=== PATIENT | female | born 1955 | race Caucasian/White ===

== ENCOUNTER 2017-03-30 09:38 | Inpatient (IN) | payer SELFPAY ==
--- NOTE | ~2017-03-30 | DS ---
Unit #: [id number] #: [id number] Patient: BRANDT CHAMPAGNE [id number] [facility] [address] [facility]. [place], [place] [address] [id number] I MR#: [id number] NAME: BRANDT CHAMPAGNE ROOM: 340 Age: 61 Sex: F Admission Date: 03/30/2017 : 1955 Discharge Date: 04/03/2017 Attending Physician: Seble Wray M.D. DISCHARGE SUMMARY DIAGNOSIS ON ADMISSION Atrial fibrillation. DIAGNOSES ON DISCHARGE 1. Atrial fibrillation, rate controlled. 2. Hypertension. 3. Hypothyroidism. 4. Noncompliance with medication secondary to inability to afford. 5. Chronic congestive heart failure with ejection fraction of 40% to 45%. 6. Morbid obesity. CONSULTATIONS Dr. Null in cardiac consultation. LABS AND PROCEDURES 1. Patient had a 2D echocardiogram done which was a limited study but patient's ejection fraction was around 40% to 45%. She had mild to moderate mitral regurgitation present. 2. Patient's creatinine is 0.6 today, sodium 139, and potassium is 3.7. Patient's TSH was 44.43 and free T4 was 0.37. Triglycerides were 203. WBC was 9.6, hemoglobin 12.9, and platelet count was 253,000. HOSPITAL COURSE A 61-year-old patient was admitted to [facility] with atrial fibrillation with rapid ventricular rate. Details are as per admission History and Physical. Atrial fibrillation with rapid ventricular rate. Patient was seen by Dr. Null in consultation and was treated with medicine. Patient's rate is much better controlled. Initially, Dr. Null thought to start patient on Coumadin, but unfortunately, patient does not have insurance and states that she may not be able to have INR done on regular intervals. Therefore, arrangements were made for Xarelto, and patient will be enrolled in Xarelto program. Patient is noncompliant because of cost issues, and she was not even taking her Synthroid at home. Her TSH was 44. I will discharge patient on 50 mcg of Synthroid, and I advised her that it is very important for her to take her medications. She showed complete understanding to the fact that her noncompliance can lead to worsening of condition and can cause permanent disability and possible . Today, patient is comfortable and is anxious to go home. PHYSICAL EXAMINATION Unit #: [id number] #: [id number] Patient: BRANDT CHAMPAGNE VITAL SIGNS: Temperature of 97.9, pulse 73 per minute, respiratory rate 16 per minute, and blood pressure is 139/77. HEENT: No conjunctival congestion. Sclerae are nonicteric. NECK: Supple. Trachea is central. RESPIRATORY: Breath sounds equal bilaterally. There are no wheezes or crackles. HEART: Regular rate and rhythm, S1 and S2. ABDOMEN: Soft, obese, and nontender. Bowel sounds are present. Patient is morbidly obese. RECOMMENDATIONS ON DISCHARGE 1. Condition is stable. 2. Activity is as tolerated. 3. Followup: Patient is advised to follow with primary care physician in one week and have a CBC and BMP done. Patient is advised to follow up with Cardiology as recommended. Patient is advised to have a TSH with primary care physician in four to six weeks. 4. Patient is advised to call primary care physician or go to the ER if her condition changes. DISCHARGE MEDICATIONS 1. Xarelto 20 mg p.o. daily. 2. Potassium 40 mEq p.o. b.i.d. 3. Synthroid 50 mcg p.o. daily. Please note, the plan was discussed in detail with patient who showed complete understanding. Dictated by... Abdon Mahan/jl TD: 04/03/2017 16:10 JOB #: [id number] CC: Rosario Null M.D. [facility], [facility]. DISCHARGE SUMMARY Page 1 of 1 X Seble Wray MD X DISCHARGE SUMMARY
--- NOTE | ~2017-03-30 | HP ---
Unit #: [id number] #: [id number] Patient: BRANDT CHAMPAGNE [id number] [facility]. [address] [place], [place] [address] [id number] I MR#: [id number] NAME: BRANDT CHAMPAGNE. ROOM: 340 Age: 61 Sex: F Admission Date: 03/30/2017 : 1955 Attending Physician: Jaycee Conroy M.D. Primary Care Physician: No Primary Care Physician HISTORY AND PHYSICAL CHIEF COMPLAINT Irregular heartbeat and high blood pressure. HISTORY OF PRESENT ILLNESS The patient is a 61-year-old female with a history of a thyroid problem, presented to the [facility] with high blood pressure and irregular heartbeat. The patient was sent to the [facility] ER with a new onset afib. The patient was also found to have hypokalemia with the potassium down to 2.6. The patient was found to be in congestive heart failure with a pulmonary edema and is being admitted for the above reasons. The patient has stopped taking the medication, has not seen the physician for the last few years for unknown reasons. PAST MEDICAL HISTORY History of a thyroid problem. PAST SURGICAL HISTORY None. HOME MEDICATION Used to take Synthroid and ibuprofen. ALLERGIES No known drug allergies. SOCIAL HISTORY No history of smoking, alcohol or any illicit drug abuse. FAMILY HISTORY Reviewed and none. REVIEW OF SYMPTOMS Fourteen-point review of symptoms performed only pertinent positive findings as described above, remaining are negative. PHYSICAL EXAMINATION GENERAL APPEARANCE: On examination the patient is lying on a bed not in acute distress. VITAL SIGNS: Temperature 98.1, pulse 122, respiratory rate 18, blood pressure 180/117, sating 97% at 2 L of nasal cannula. HEENT: Head atraumatic, normocephalic. Pupils equal, round and reacting to light and accommodation. Extraocular movements are intact. Unit #: [id number] #: [id number] Patient: BRANDT CHAMPAGNE NECK: Supple. LUNGS: Decreased air entry at the bases. Positive for rales. HEART: Irregular rate and rhythm. ABDOMEN: Soft, positive bowel sounds. EXTREMITIES: No cyanosis. No clubbing. Positive for pedal edema. DIAGNOSTIC STUDIES LABORATORY DATA: TSH 44.3, free T4 is 0.37, BNP is 152, sodium 140, potassium 2.6, chloride 103, bicarb 28, glucose 96, BUN 14, creatinine 0.8, AST 20, ALT 15, alkaline phosphatase 93, INR is 1.1. CBC: WBC is 6.6, hemoglobin 12.2, hematocrit 37.6, platelets 267, troponin less than 0.05. IMAGING: Chest x-ray shows: Patient in the right anterior oblique position. There is marked enlargement in the cardiac silhouette. This could be reflection of a chamber enlargement or pericardial effusions. Pulmonary vasculature is abnormally prominent and indistinct with increased peribronchial and interstitial markings extending from the central lung zones toward the periphery, more pronounced in the bilateral lower lung zones. Some patchy densities in the lung bases. Appearance favors moderate pulmonary edema, likely cardiogenic, with interstitial and airspace components. CARDIOVASCULAR: EKG shows atrial fibrillation with a rate of 101 beats per minute. ASSESSMENT 1. Atrial fibrillation, new onset. 2. Congestive heart failure, likely diastolic. 3. Hypokalemia. 4. Hypothyroidism. PLAN Plan to admit the patient as inpatient to the telemetry. Will have the Cardiology consult for the new onset afib and replace the potassium per protocol and continue with the diuresis with Lasix 40 mg IV daily and restart the Synthroid, the patient's home dose is 100 and can titrate up and further recommendations will follow as more lab results are available. Dictated by Abdon Waddell/verna TD: 03/30/2017 16:37 JOB #: [id number] Unit #: [id number] #: [id number] Patient: BRANDT CHAMPAGNE HISTORY AND PHYSICAL Page 1 of 1 X JAYCEE CONROY MD HISTORY AND PHYSICAL
--- NOTE | ~2017-03-30 | EKG ---
PATIENT: BRANDT CHAMPAGNE UNIT #: [id number] Ventricular Rate: 101 BPM Atrial Rate: 80 BPM QRS Duration: 102 ms Q-T Interval: 304 ms QTC Calculation(Bezet): 394 ms Calculated R [place]: 2 degrees Calculated T [place]: 133 degrees Diagnosis Line: Atrial fibrillation with rapid ventricular Diagnosis Line: response Diagnosis Line: Cannot rule out Anterior infarct , age Diagnosis Line: undetermined Diagnosis Line: Abnormal ECG Diagnosis Line: No previous ECGs available Diagnosis Line: Confirmed by MARLA LEONARDO MD ([id number]) on Diagnosis Line: 04/05/2017 8:29:25 AM INTERPRETING MD: MALISSA HOLLAND
--- NOTE | ~2017-03-30 | EKG ---
PATIENT: BRANDT CHAMPAGNE UNIT #: [id number] Ventricular Rate: 109 BPM Atrial Rate: 104 BPM QRS Duration: 96 ms Q-T Interval: 366 ms QTC Calculation(Bezet): 492 ms Calculated R [place]: 25 degrees Calculated T [place]: 27 degrees Diagnosis Line: Atrial fibrillation with rapid ventricular Diagnosis Line: response Diagnosis Line: Possible Inferior infarct , age undetermined Diagnosis Line: Abnormal ECG Diagnosis Line: When compared with ECG of 30-MAR-2017 09:47, Diagnosis Line: (unconfirmed) Diagnosis Line: Minimal criteria for Anterior infarct are no Diagnosis Line: longer Present Diagnosis Line: QT has lengthened Diagnosis Line: Confirmed by RODNEY MERCADO MD ([id number]) on Diagnosis Line: 03/31/2017 4:14:08 PM INTERPRETING MD: LÓPEZ
--- NOTE | ~2017-03-30 | CO ---
Unit #: [id number] #: [id number] Patient: BRANDT CHAMPAGNE [id number] [facility]. [address] [place], [place] [address] [id number] I MR#: [id number] NAME: BRANDT CHAMPAGNE ROOM: 340 Age: 61 Sex: F Admission Date: 03/30/2017 : 1955 Attending Physician: Seble Wray M.D. Primary Care Physician: Primary Care Physician No Consultation Date: 03/30/2017 CONSULTATION REPORT REASON FOR CONSULT Atrial fibrillation and congestive heart failure. HISTORY OF PRESENT ILLNESS This is a 61-year-old white female, new to our group, with a past medical history of hypertension and hypothyroidism, not currently on medications. The patient has not seen a primary care in the last three to four years. She has been off all medications. Additional past medical history includes obesity with a weight of 353 pounds. The patient denies hyperlipidemia, diabetes mellitus, myocardial infarction, cerebrovascular accident. She has not followed with a puzzle assembler and denies any previous stress tests or cardiac catheterizations. She denies any previous arrhythmias or need for anticoagulation. She has never been told that she had a murmur or a diagnosis of congestive heart failure. She went to [facility] yesterday with complaints of shortness of breath and swelling in the legs. The shortness of breath has been with exertion. She has also had some PND and orthopnea. She has been sleeping with the head of her bed elevated. These symptoms have been present for the last month or so but recently worse. She denies any dizziness, palpitations or syncope. There are no reports of chest pain. She has been fatigued but she states that she has been off her thyroid medicine. She states that her blood pressure in the past was borderline but she was not started on medications for that. In the emergency department, initial labs revealed potassium 2.6, creatinine normal at 0.8 with a BUN of 14. White blood cell count was normal. BNP was mildly elevated at 152. TSH was uncontrolled at 44.43. INR was 1.1. Chest x-ray revealed marked cardiac enlargement with the possibility of a pericardial effusion. There was also prominent pulmonary vasculature. EKG revealed atrial fibrillation with a ventricular rate of 101 beats per minute. There was poor R-wave progression in the anterior leads. She was admitted for congestive heart failure and atrial fibrillation. Cardiology was consulted for further management. PAST MEDICAL HISTORY 1. Hypothyroidism, not currently on medication. 2. Hypertension, not currently on medication. 3. Obesity with a BMI of 53. 4. No family history of coronary artery disease. 5. Nonsmoker. PAST SURGICAL HISTORY Unit #: [id number] #: [id number] Patient: BRANDT CHAMPAGNE Exploratory abdominal surgery. HOME MEDICATIONS None. ALLERGIES No known drug allergies. 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 She is a lifetime nonsmoker. No reports of alcohol or illicit drug use. FAMILY HISTORY Her mother had congestive heart failure. Her father has emphysema. Her brother had some sort of malignancy. REVIEW OF SYSTEMS Ten-point review of systems negative except for details as noted above in HPI. PHYSICAL EXAMINATION VITAL SIGNS: Temperature 98, pulse 102, blood pressure 152/107. GENERAL: This is a 61-year-old white female in no acute distress. SKIN: Warm and dry. NECK: Supple. No jugular vein distention. No hepatojugular reflux. Normal carotid upstrokes. No carotid bruits auscultated. HEART: S1, S2. Irregularly irregular. No murmurs, rubs, or gallops. LUNGS: Bilateral breath sounds have fine bibasilar rales. Respirations even and unlabored. No wheezes or rhonchi. ABDOMEN: Obese, soft, nontender, nondistended. Positive bowel sounds auscultated times four quadrants. No ascites noted. EXTREMITIES: Bilateral lower extremities have 3+ pitting edema. DP and PT pulses are 2+. Capillary refill is less than 2 seconds. DIAGNOSTIC STUDIES LABORATORY: White blood cell count 6.6, hemoglobin 12.2, hematocrit 37.6, platelets 267. Sodium 140, potassium 2.6, chloride 103, CO2 is 28, BUN 14, creatinine 0.8, glucose 96, albumin 3.9, AST 20, ALT 15, alkaline phosphatase 93. Troponin pending. BNP 152. TSH 44.43. IMAGING: Chest x-ray reveals marked cardiac enlargement, rule out pericardial effusion. Prominent pulmonary vasculature. CARDIOVASCULAR: EKG reveals atrial fibrillation with ventricular rate of 101 beats per minute. Poor R-wave progression in the anterior leads. IMPRESSION 1. Atrial fibrillation with rapid ventricular response, age undetermined. 2. Severe hypokalemia. 3. Cardiomegaly. 4. Acute congestive heart failure. 5. Uncontrolled hypothyroidism. 6. Uncontrolled hypertension. 7. Morbid obesity. PLAN 1. The patient presented to the hospital with complaints of shortness of breath and lower extremity edema. She was admitted and Cardiology Unit #: [id number] #: [id number] Patient: BRANDT CHAMPAGNE was consulted. 2. The patient will be started on strict I's and O's, fluid restriction and low-sodium diet. 3. 2D echocardiogram will be obtained to assess LV function and valves and to also rule out a pericardial effusion. 4. The patient will be given Lasix 40 mg IV b.i.d. as there is no evidence of tamponade. 5. BMP, CBC, fasting lipid profile, and EKG will be obtained. 6. The patient is on potassium protocol but will be given an additional dose times 1 now. 7. She has been restarted on Synthroid. 8. She has been encouraged to lose weight with exercise and decreased caloric intake. 9. Once volume status is stable, she should be considered for ischemic workup. 10. The patient's atrial fibrillation is currently rate controlled. She does have a CHADS2 VASc score of at least 2. She will be started on Lovenox. Long-term anticoagulation needs to be discussed prior to discharge. Dictated by... Mary Ascencio APRN for Abdon Al TD: 03/31/2017 23:09 JOB #: [id number] CONSULTATION REPORT Page 1 of 1 X X CONSULTATION REPORT
--- NOTE | ~2017-03-30 | BMI ---
[facility] Nutrition Therapy DATE: 03/31/17 Patient: BRANDT CHAMPAGNE Physician: JULIÁN [address]: [address] [place], [place] [address]JOVANNY ARREDNODO Room/Bed: [address] [place] [address], Zip: [place] [address] Admit Date: 03/30/17 Date of : [birth year] Height: 5 8 Weight: 341 154.8 HIGH BMI NOTE: DX: 61 y/o female admitted for chest pain. ANTHROPOMETRICS: ht: 5'8" wt: 341# (155 kg) BMI: 51 DIET: Healthy heart + 2 gm NA + Fluid restriction INTERVENTION: 1. Healthy heart diet + 2 gm NA + Fluid Restriction RECOMMENDATIONS: 1. Continue healthy heart + 2 gm NA + fluid restriction diet in order to promote gradual weight loss towards a healthy BMI (19.0-25.0) or +/- 10% IBW. RD will f/u per protocol. Respectfully, RENNY HOANG, program management intern Raúl Pinedo MS, RD, LD [facility] Psychiatric cc: client file
--- NOTE | ~2017-03-30 | CT16 ---
[facility] A Service of [facility] & [facility] RADIOLOGY TEXT RESULTS PATIENT: BRANDT CHAMPAGNE LOCATION: [facility] 340-01 : [birth year] UNIT #: [id number] AGE: [address]: JAYCEE CONROY MD SEX: F ORDER DR: [id number] [facility] [address] [facility]. [place], [place] [address] [id number] I MR#: [id number] Acc #: [id number] NAME: BRANDT CHAMPAGNE. : 1955 SEX: F STUDY DATE/TIME: 03/30/2017 17:55 UNIT: A U ROOM: 340 STUDY DESCRIPTION: CT Angio Chest for PE Attending Physician: Jaycee Conroy M.D. Ordering Physician: Rosario Null M.D. Primary Care Physician: No Primary Care Physician MEDICAL IMAGING REPORT This report is preliminary unless electronic signature is present EXAM Chest CT PE protocol with contrast 03/30/2017 INDICATIONS 61-year-old female presenting for evaluation of the chest secondary to hypertension. Chest pain, short of air 2 months. History of thyroid dysfunction. TECHNIQUE Contrast enhanced CT scan of the chest PE protocol was performed with 3-D reformats. This CT exam was performed with one or more of the following radiation dose reduction techniques: automatic control, adjustment of mA and/or kV according to patient size, and iterative reconstruction. COMPARISON No comparison studies. FINDINGS CT CHEST: IV bolus suboptimal. There is no large filling defect in the main left or right central pulmonary arteries to suggest pulmonary embolus. Beyond the proximal first order branches, the pulmonary arteries are not well opacified and sensitivity for the presence or absence of pulmonary embolus is degraded and cannot be ascertained. The main pulmonary artery is dilated up to 3.7 cm likely reflecting underlying pulmonary arterial hypertension. Aorta demonstrates atherosclerotic change. There is no aneurysm. Aorta not well opacified to assess for the presence or absence of dissection. Included thyroid within normal limits. The heart is enlarged. There is a small pericardial effusion. Reactive-appearing axillary nodes are present. There are nonspecific mediastinal nodes. Index node in the precarinal station to the right of midline measures 14 mm. [place] STS. [facility] A Service of [facility] & [facility] RADIOLOGY TEXT RESULTS PATIENT: BRANDT CHAMPAGNE LOCATION: [facility] 340-01 : 53 UNIT #: [id number] AGE: [address]: JAYCEE CONROY MD SEX: F ORDER DR: posterior paratracheal node on the right measures 8 mm. Other similar sized mediastinal and hilar nodes are present and favored to be reactive but should be correlated clinically. There is old healed granulomatous disease. Included upper abdomen demonstrates no acute finding. There is a left adrenal mass measuring 5.2 x 6.5 cm. It contains small areas of macroscopic fat and punctate and curvilinear calcifications. Imaging features are most characteristic of a benign myelolipoma given the presence of the macroscopic fat. We have no comparisons for this patient in our system. Incidental uncomplicated diverticulosis. Lungs demonstrate old healed granulomatous disease and scattered areas of atelectasis/scarring. More confluent atelectasis in the lung bases. No effusion. Mild emphysema. Osseous structures demonstrate spinal degenerative change. No suspicious bone lesion. IMPRESSION 1. Suboptimal bolus timing. No PE in the main left or right central pulmonary arteries. Beyond that level the pulmonary arteries are not well opacified or assessed. 2. No aortic aneurysm. No distinct evidence of dissection within limitations of contrast bolus timing. 3. Lungs are essentially clear. There are some scattered areas of atelectasis and scarring. Mild underlying emphysema. 4. Cardiomegaly and a small pericardial effusion. 5. 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 6. Underlying pulmonary arterial hypertension. 7. Probable reactive mediastinal and hilar nodes. Dictated by... Mu Claros M.D. THIS IS AN ELECTRONICALLY VERIFIED REPORT Mu Claros M.D. at 03/30/2017 8:49 PM JANY/perez TD: 03/30/2017 20:16 JOB #: [id number] MEDICAL IMAGING REPORT Page 1 of 1 COPY
--- NOTE | ~2017-03-30 | CR72 ---
[facility] A Service of [facility] RADIOLOGY TEXT RESULTS PATIENT: BRANDT CHAMPAGNE LOCATION: [facility] 340-01 : 53 UNIT #: [id number] AGE: [address]: Seble Wray MD SEX: F ORDER DR: [id number] [place] [id number] I MR#: [id number] Acc #: [id number] NAME: BRANDT CHAMPAGNE. : 1955 SEX: F STUDY DATE/TIME: 03/30/2017 10:33 UNIT: SEDOF ROOM: [place] STUDY DESCRIPTION: CR Chest Single View Portable Attending Physician: Yohan Conroy M.D. Ordering Physician: Alexis Fernandez M.D. Primary Care Physician: Primary Care Physician No MEDICAL IMAGING REPORT This report is preliminary unless electronic signature is present. EXAM Portable chest x-ray 03/30/2017 HISTORY New onset atrial fibrillation. Irregular heartbeat, short of air couple month's duration. Nonsmoker. TECHNIQUE AP radiograph of the chest presented COMPARISON No comparison FINDINGS Patient in the right anterior oblique position. There is marked enlargement. The cardiac silhouette. This could be a reflection of chamber enlargement or pericardial effusion. Pulmonary vasculature is abnormally prominent and indistinct with increased peribronchial and interstitial markings extending from the central lung zones toward the periphery more pronounced in the bilateral lower lung zones. Some patchy densities at the lung bases. Appearance favors moderate pulmonary edema likely cardiogenic with interstitial and airspace components. The left lung base is difficult to evaluate given the patient's overall large body habitus, obliquity film, and cardiac enlargement. Left pleural effusion not excluded. No pneumothorax. Dictated by... Saw Bryant M.D. THIS IS AN ELECTRONICALLY VERIFIED REPORT [facility] A Service [facility] RADIOLOGY TEXT RESULTS PATIENT: BRANDT CHAMPAGNE LOCATION: [facility] 340-01 : [birth year] UNIT #: [id number] AGE: [address]: Seble Wray MD SEX: F ORDER DR: Saw Bryant M.D. at 04/05/2017 10:15 AM RAFAELA/kimmy TD: 03/30/2017 13:16 JOB #: [id number] MEDICAL IMAGING REPORT Page 1 of 1
[~2017-03-30 09:38] MED LIST: AUGMENTIN PO; IBUPROFEN600 MG PO; VIBRAMYCIN100 M1 DOB; VICODIN 5/1 TAB 5/50 PO
[2017-03-30] MEDS ORDERED: SYNTHROID PO (09:56)
[2017-03-30 10:25] LABS: POC - CKMB <1.0 ng/mL (0.0-7.9); POC - TROPONIN <0.05 ng/mL (<=0.05)
[2017-03-30 10:36] LABS: BASOPHIL# 0.1 X10e3 (0-0.3); BASOPHIL% 0.9 % (0-2.5); EOSINOPHIL# 0.3 X10e3 (0-0.7); EOSINOPHIL% 4.4 % (0.0-7.0); HEMATOCRIT 37.6 % (35.0-45.0); HEMOGLOBIN 12.2 gm/dL (12.0-16.0); INR 1.1; LYMPHOCYTE# 1.1 X10e3 (1.0-3.5); LYMPHOCYTE% 17.2 % (17.0-45.0); MEAN CELL VOLUME 87.9 FL (83-96); MEAN CORPUSCULAR HEMOGLOBIN 28.4 PG (28-34); MEAN CORPUSCULAR HGB CONC 32.3 g/dL (30-36); MEAN PLATELET VOLUME 7.8 FL (6.5-11.5); MONOCYTE# 0.8 X10e3 (0-1.0); MONOCYTE% 11.9 % (3.0-12.0); NEUTROPHIL# 4.3 X10e3 (1.5-7.1); NEUTROPHIL% 65.6 % (40-75); PLATELET COUNT 267 X10e3 (140-420); RED BLOOD COUNT 4.28 X10e (3.90-5.30); RED CELL DISTRIBUTION WIDTH 14.2 % (11.0-15.5); WHITE BLOOD COUNT 6.6 X10e3 (4.0-10.5)
[2017-03-30 10:37] LABS: DIFF IND NO
[2017-03-30 10:44] LABS: PARTIAL THROMBOPLASTIN TIME 28.4 SECONDS (25.6-38.1)
[2017-03-30 10:47] LABS: ALBUMIN SERUM 3.9 g/dL (3.5-5.0); BILIRUBIN, DIRECT 0.2 mg/dL (0.0-0.2); BILIRUBIN,INDIRECT 0.2 mg/dL (0.0-0.9); BILIRUBIN,TOTAL 0.4 mg/dL (0.2-2.0); BUN/CREATININE RATIO 17.5; CALCIUM SERUM 8.4 mg/dL (8.4-10.2); CREATININE SERUM 0.8 mg/dL (0.6-1.4); GLOM FILT RATE Estimated 78.5 mL/min (>60)
[2017-03-30 10:48] LABS: POTASSIUM 2.6 mmol/L (3.5-5.1)
[2017-03-30 11:15] LABS: THYROID STIMULATING HORMONE 44.43 uIU/ml (0.34-5.60)
[2017-03-30 14:57] LABS: FREE THYROXIN (T4) 0.37 ng/dL (0.58-1.64)
[2017-03-31 00:59] LABS: HEMATOCRIT 39.9 % (35.0-45.0); HEMOGLOBIN 12.9 gm/dL (12.0-16.0); MEAN CELL VOLUME 88.8 FL (83-96); MEAN CORPUSCULAR HEMOGLOBIN 28.6 PG (28-34); MEAN CORPUSCULAR HGB CONC 32.2 g/dL (30-36); RED BLOOD COUNT 4.5 X10e (3.90-5.30); RED CELL DISTRIBUTION WIDTH 14.5 % (11.0-15.5); WHITE BLOOD COUNT 6.7 X10e3 (4.0-10.5)
[2017-03-31 01:34] LABS: CHOLESTEROL 185 mg/dL (0-200); HDL CHOLESTEROL 35 mg/dL (35-95); LDL CHOLESTEROL 109 mg/dL (-130); LDL/HDL RATIO 3 RATIO (0-4); TRIGLYCERIDES 203 mg/dL (10-160)
[2017-03-31 01:58] LABS: CALCIUM SERUM 8.3 mg/dL (8.4-10.2); CREATININE SERUM 0.8 mg/dL (0.6-1.4); GLOM FILT RATE Estimated 78.5 mL/min (>60)
[2017-03-31 02:01] LABS: POTASSIUM 2.9 mmol/L (3.5-5.1)
[2017-04-01 05:46] LABS: BUN/CREATININE RATIO 17.14; CALCIUM SERUM 7.9 mg/dL (8.4-10.2); CREATININE SERUM 0.7 mg/dL (0.6-1.4); GLOM FILT RATE Estimated 92.2 mL/min (>60); POTASSIUM 3.2 mmol/L (3.5-5.1)
[2017-04-01 05:50] LABS: INR 1.1; PROTHROMBIN TIME (PATIENT) 11.4 SECONDS (10.0-11.7)
[2017-04-02 06:24] LABS: HEMATOCRIT 39.9 % (35.0-45.0); HEMOGLOBIN 12.9 gm/dL (12.0-16.0); MEAN CELL VOLUME 88.2 FL (83-96); MEAN CORPUSCULAR HEMOGLOBIN 28.5 PG (28-34); MEAN CORPUSCULAR HGB CONC 32.3 g/dL (30-36); MEAN PLATELET VOLUME 8.5 FL (6.5-11.5); RED BLOOD COUNT 4.53 X10e (3.90-5.30); RED CELL DISTRIBUTION WIDTH 14.3 % (11.0-15.5); WHITE BLOOD COUNT 9.6 X10e3 (4.0-10.5)
[2017-04-02 06:26] LABS: INR 1.2; PROTHROMBIN TIME (PATIENT) 12.7 SECONDS (10.0-11.7)
[2017-04-02 07:02] LABS: BUN/CREATININE RATIO 17.14; CALCIUM SERUM 8.8 mg/dL (8.4-10.2); CREATININE SERUM 0.7 mg/dL (0.6-1.4); GLOM FILT RATE Estimated 92.2 mL/min (>60); POTASSIUM 3.3 mmol/L (3.5-5.1)
[2017-04-03 08:01] LABS: INR 1.6; PROTHROMBIN TIME (PATIENT) 17.1 SECONDS (10.0-11.7)
[2017-04-03 08:21] LABS: BUN/CREATININE RATIO 21.66; CALCIUM SERUM 8.6 mg/dL (8.4-10.2); CREATININE SERUM 0.6 mg/dL (0.6-1.4); POTASSIUM 3.7 mmol/L (3.5-5.1)
[2017-04-03] MEDS ORDERED: XARELTO20 MG PO (16:55)
[2017-04-03] MEDS ORDERED: LOPRESSOR PO (16:57)
[2017-04-03] MEDS ORDERED: ACETAMINOPHEN PO (16:57)
[2017-04-03] MEDS ORDERED: LISINOPRIL10 MG PO (16:58)
[2017-04-03] MEDS ORDERED: LASIX PO (16:58)
[2017-04-03] MEDS ORDERED: ALDACTONE25 MG PO (16:59)
[2017-04-03] MEDS ORDERED: KCL PO (17:00)
[2017-04-03] MEDS ORDERED: LEVOTHYROXINE50 MC1 PO (17:01)
[2017-06-23] MEDS ORDERED: MULTI VITAMIN1 EACH PO (13:42)
[2017-06-23] MEDS ORDERED: ACETAMINOPHEN PO (13:43)
[2017-06-23] MEDS ORDERED: XARELTO10 MG PO (13:44)
== END 2017-04-03 17:54 | disposition home or self-care (01) | DRG 308 ==
LOC: SED 09:38 → SEDOF 11:15 → C3A PCU 11:15 → SED 11:21 → SEDOF 11:21 → C3A PCU 13:33 → SEDOF 13:33 → C3A PCU 03-31 06:38
PROVIDERS: Emergency Medicine; Internal Medicine; Internal Medicine Cardiovascular Disease
PROC: B32TYZZ Computerized Tomography (CT Scan) of Left Pulmonary Artery using Other Contrast (ICD-10-PCS; 2017-03-30)
PROC: B32SYZZ Computerized Tomography (CT Scan) of Right Pulmonary Artery using Other Contrast (ICD-10-PCS; 2017-03-30)
PROC: B246YZZ Ultrasonography of Right and Left Heart using Other Contrast (ICD-10-PCS; principal; 2017-03-31)
DX: I48.91 Unspecified atrial fibrillation (principal); I50.33 Acute on chronic diastolic (congestive) heart failure; Z68.43 Body mass index [BMI] 50.0-59.9, adult; I11.0 Hypertensive heart disease with heart failure; Z91.14 Patient's other noncompliance with medication regimen; E03.9 Hypothyroidism, unspecified; E66.01 Morbid (severe) obesity due to excess calories; Z80.9 Family history of malignant neoplasm, unspecified; E87.6 Hypokalemia; I34.0 Nonrheumatic mitral (valve) insufficiency
CPT/HCPCS: 36415; 71010; 71275; 80048; 80061; 80076; 82553; 83735; 83880; 84132; 84439; 84443; 84484; 85025; 85027; 85610; 85730; 93005; 93306; 94760; 96374; 99285; J1650; J1940; J3475; Q9967

== ENCOUNTER 2017-05-03 00:08 | Inpatient (IN) | payer OTHER ==
[~2017-05-03] VITALS: Ht 172.7 cm; Wt 122.5 kg
--- NOTE | ~2017-05-03 | CR72 ---
[facility]. [facility] A Service of [facility] & [facility] RADIOLOGY TEXT RESULTS PATIENT: BRANDT CHAMPAGNE LOCATION: [facility] 469-01 : 53 UNIT #: [id number] AGE: [address]: Seble Wray MD SEX: F ORDER DR: [id number] [facility] [address] [facility]. [place], [place] [address] [id number] I MR#: [id number] Acc #: [id number] NAME: BRANDT CHAMPAGNE. : 1955 SEX: F STUDY DATE/TIME: 05/03/2017 14:21 UNIT: [facility] ROOM: [facility] STUDY DESCRIPTION: CR Chest Single View Portable Attending Physician: Seble Wray M.D. Ordering Physician: Rosario Null M.D. Primary Care Physician: No Primary Care Physician MEDICAL IMAGING REPORT This report is preliminary unless electronic signature is present EXAM Portable chest HISTORY Shortness of air for 2 days. FINDINGS Moderate cardiac enlargement and pulmonary vascularity is normal. No airspace infiltrates or effusions. IMPRESSION Moderate cardiac enlargement is accentuated by low lung volumes. Lungs are clear. Dictated by... Jagdeep Montilla M.D. THIS IS AN ELECTRONICALLY VERIFIED REPORT Jagdeep Montilla M.D. at 05/03/2017 11:35 PM DFAnnemarie/nico TD: 05/03/2017 22:16 JOB #: [id number] MEDICAL IMAGING REPORT Page 1 of 1 COPY
--- NOTE | ~2017-05-03 | CT4 ---
[facility] A Service of [facility] RADIOLOGY TEXT RESULTS PATIENT: BRANDT CHAMPAGNE LOCATION: [facility] 469 : 53 UNIT #: [id number] AGE: [address]: Seble Wray MD SEX: F ORDER DR: [id number] [address] [address] [id number] I MR#: [id number] Acc #: [id number] NAME: BRANDT CHAMPAGNE. : 1955 SEX: F STUDY DATE/TIME: 05/03/2017 1:46 UNIT: SEDOF ROOM: [id number] STUDY DESCRIPTION: CT Abd and Pelv Wo Cont Attending Physician: Dianelys Wilder M.D. Ordering Physician: Carmelo Shi M.D. Primary Care Physician: Primary Care Physician No MEDICAL IMAGING REPORT This report is preliminary unless electronic signature is present. EXAM CT abdomen and pelvis without contrast INDICATION Nausea for the past [address] of the abdomen and pelvis. This CT examination was performed with one or more of the following radiation dose reduction techniques: automatic exposure control, adjustment of mA and/or kV according to patient size, and iterative reconstruction. COMPARISON None. FINDINGS ABDOMEN WITHOUT CONTRAST: Included lung bases clear. Liver measures 22.8 cm in length. The spleen, pancreas, gallbladder show no acute abnormality. Nonobstructive calculi at the lower pole of the left kidney measuring up to 3-4 mm. There is a partially calcified mass in the left adrenal gland that measures up to 6.3 cm. It contains a few tiny foci of macroscopic fat. Bowel loops are nondilated. There is a large umbilical hernia that contains fat and a large amount of fluid. It measures up to at least 20 cm in length. It is not completely included on the study. PELVIS WITHOUT CONTRAST: No pelvic mass or fluid. No aggressive appearing bone lesion. IMPRESSION 1. Large umbilical hernia measuring up to 20 cm in length, containing fat STS. [facility] A Service of [facility] RADIOLOGY TEXT RESULTS PATIENT: BRANDT CHAMPAGNE LOCATION: [facility] 469 : 53 UNIT #: [id number] AGE: [address]: Seble Wray MD SEX: F ORDER DR: and fluid and not completely included on the study. 2. 6.3 cm left adrenal mass probably a benign adrenal myelolipoma. Given its size and lack of comparison studies, recommend evaluation with adrenal protocol MRI or CT on a nonemergent basis. 3. Nonobstructing calculi in the left kidney. Dictated by... Johnny Alvarez M.D. THIS IS AN ELECTRONICALLY VERIFIED REPORT Johnny Alvarez M.D. at 05/03/2017 9:57 PM BRENDAN/cleo TD: 05/03/2017 10:09 JOB #: [id number] MEDICAL IMAGING REPORT Page 1 of 1
--- NOTE | ~2017-05-03 | EKG ---
PATIENT: BRANDT CHAMPAGNE UNIT #: [id number] Ventricular Rate: 99 BPM Atrial Rate: 94 BPM QRS Duration: 106 ms Q-T Interval: 342 ms QTC Calculation(Bezet): 438 ms Calculated R [place]: -4 degrees Calculated T [place]: -175 degrees Diagnosis Line: Atrial fibrillation Diagnosis Line: Minimal voltage criteria for LVH, may be normal Diagnosis Line: variant Diagnosis Line: ST and T wave abnormality, consider inferolateral Diagnosis Line: ischemia or digitalis effect Diagnosis Line: Abnormal ECG Diagnosis Line: When compared with ECG of 31-MAR-2017 05:59, Diagnosis Line: Inverted T waves have replaced nonspecific T wave Diagnosis Line: abnormality in Lateral leads Diagnosis Line: QT has shortened Diagnosis Line: Confirmed by MARLA LEONARDO MD ([id number]) on Diagnosis Line: 05/05/2017 7:27:52 AM INTERPRETING MD: MALISSA HOLLAND
--- NOTE | ~2017-05-03 | CO ---
Unit #: [id number] #: [id number] Patient: BRANDT CHAMPAGNE [id number] [address] [address] [id number] I MR#: [id number] NAME: BRANDT CHAMPAGNE ROOM: 469 Age: 61 Sex: F Admission Date: 05/03/2017 : 1955 Attending Physician: Seble Wray M.D. Consultation Date: 05/03/2017 CONSULTATION REPORT HISTORY OF PRESENT ILLNESS Ms. Champagne is a 61-year-old female who was admitted to the hospital with lightheadedness and some possible bright red blood per rectum. By history, she was recently diagnosed with atrial fibrillation and started on Xarelto in March of this year. During her evaluation, her doctors noted that she had a large umbilical hernia. Patient states she has had this hernia for many years ever since a laparoscopy back in the late . It does not cause her any discomfort, and she does not admit to any obstructive symptoms or nausea and vomiting. It is a chronic hernia because of the thick wall of the skin. It is a proboscis-type hernia that sticks out from the abdominal wall approximately 12 cm. On examination, there is partial incarceration and probably some degree of bowel involvement. PAST MEDICAL HISTORY 1. Atrial fibrillation, on anticoagulation. 2. Hypothyroidism. 3. Hypertension. 4. Morbid obesity. 5. Hypokalemia. 6. She denies any prior surgery. FAMILY HISTORY She is unaware of any chronic or inheritable diseases. SOCIAL HISTORY Denies the use of tobacco, alcohol, or recreational drugs. 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 HOME MEDICATIONS 1. Xarelto. 2. Tylenol. 3. Lopressor. 4. Lasix. 5. Lisinopril. 6. Aldactone. 7. Potassium. 8. Synthroid. Here in the hospital she is on Lovenox. She is no longer on Plavix and aspirin. REVIEW OF SYSTEMS She denies any melena or hematemesis. She has had some bright red blood Unit #: [id number] #: [id number] Patient: BRANDT CHAMPAGNE per rectum. Review of systems is otherwise unremarkable. PHYSICAL EXAMINATION VITAL SIGNS: Temperature is 98, pulse 67, respirations 16, and blood pressure 99/66. GENERAL: Awake, alert, oriented, cooperative, and pleasant. HEENT: Unremarkable. CARDIAC: Irregular rhythm. LUNGS: Clear. ABDOMEN: Soft with no peritoneal signs. She has a large umbilical hernia that extends at least 12 cm above the abdominal wall. It is very wide-based, and the skin is very thickened. She does have intraperitoneal contents that are partially, but not fully reducible. EXTREMITIES: Trace edema. NEUROLOGIC: Grossly intact. DIAGNOSTIC STUDIES LABORATORY: BUN and creatinine are 113 and 2.4. Her baseline prior to admission was 13 and 0.6. Electrolytes and liver chemistries are otherwise normal. White count 6800, hemoglobin 12.3, and platelets 227,000. Her hemoglobin is essentially stable. Urine is negative for infection. IMAGING: CT of the abdomen and pelvis shows a large umbilical hernia with fat and fluid. A 6.3 cm left adrenal mass that is consistent with benign adrenal myelolipoma. No evidence of obstruction. ASSESSMENT AND PLAN Patient with longstanding chronic partially incarcerated umbilical hernia and no evidence of obstruction or strangulation. It is stable and not causing any acute problems. Once her gastrointestinal bleeding has been evaluated by Dr. Alva of Gastroenterology, her acute kidney injury is evaluated by Nephrology, and we obtain cardiac clearance from Dr. Null, then we will discuss with the patient doing elective repair. I have discussed this with patient at length, and she is fully in agreement. Dictated by... Tino Everett M.D. RAIN/jl TD: 05/03/2017 19:36 JOB #: [id number] CONSULTATION REPORT Page 1 of 1 X Tino Everett MD CONSULTATION REPORT
--- NOTE | ~2017-05-03 | CO ---
Unit #: [id number] #: [id number] Patient: BRANDT CHAMPAGNE [id number] [facility] [place] [facility]. [place], [place] [address] [id number] I MR#: [id number] NAME: BRANDT CHAMPAGNE ROOM: 469 Age: 61 Sex: F Admission Date: 05/03/2017 : 1955 Attending Physician: Seble Wray M.D. Primary Care Physician: Primary Care Physician No CONSULTATION REPORT REASON FOR CONSULTATION Atrial fibrillation. HISTORY OF PRESENT ILLNESS This is a pleasant 61-year-old female, who was recently here from 03/30 through 04/02. At that time, she was noted to be in atrial fibrillation, was sent home on Xarelto. The patient has a past medical history of hypertension, hypothyroidism, atrial fibrillation, CHF, and morbid obesity. She was readmitted on 04/03 secondary to complaints of nausea, rectal bleeding, and near syncopal episode. The patient states she was at work. She works at [employer], when she became suddenly weak and lightheaded and reports she nearly passed out; however, she did not lose consciousness. However, the patient initially was taken to [facility] for evaluation. She reports at [facility] her blood pressure was extremely low 60s over 30s to 40s. She was bolused with fluid and sent to [facility] for further evaluation. On arrival to the emergency room here, it was also noted the patient's blood pressure was 65/35, pulse in the 60s, and oxygen saturation 98%. She was given 1 L normal saline fluid bolus as well as 40 mg of Protonix IV push. Her blood pressure did slowly rebound after her fluid bolus. At present, she is resting in bed. She denies any complaints of chest pain or shortness of breath. Her primary complaint is that of nausea. She does state this morning she went to the bathroom and still is noting some bleeding per her rectum of bright red blood. EKG shows atrial fibrillation, rate of 99 beats per minute, nonspecific ST-T wave abnormalities noted. No acute ischemic change. She currently has had cardiac enzymes, which are pending. PAST MEDICAL HISTORY 1. Hypertension. 2. Hypothyroidism. 3. Atrial fibrillation, on chronic anticoagulation with Xarelto. 4. Congestive heart failure. 2D echo showed an LVEF of 40% to 45% with rinl-bm-vtnzymox MR. 5. Morbid obesity with BMI greater than 53. 6. Hypokalemia. PAST SURGICAL HISTORY None reported. SOCIAL HISTORY The patient denies any tobacco use, alcohol, or illicit drug use. 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 Otherwise, no other cardiac disease. ALLERGIES No known drug allergies. HOME MEDICATIONS 1. Xarelto 20 mg p.o. daily. 2. Lopressor 75 mg p.o. b.i.d. 3. Lasix 60 mg p.o. b.i.d. 4. Levothyroxine 50 mcg p.o. daily. 5. Aldactone 25 mg p.o. daily. 6. Zofran ODT 4 mg p.o. t.i.d. p.r.n. REVIEW OF SYSTEMS A 10-point review of systems was completed and is negative except for details as stated above in the HPI. PHYSICAL EXAMINATION VITAL SIGNS: Temperature 97.9, respiratory rate 16, pulse is 70 to 100, and blood pressure 109/60. GENERAL: This is a pleasant, morbidly obese, female, lying in bed, in no acute distress. HEENT: Head is atraumatic and normocephalic. Pupils are equal and round. Mucous membranes are dry. NECK: Trachea is midline. Neck is supple. No JVD. Carotid upstrokes are normal. RESPIRATORY: Clear to auscultation. No rales, rhonchi, or wheezes. HEART: S1 and S2. Irregularly irregular. No murmur, gallop, or rub. ABDOMEN: Obese, pannus, soft, nontender, and nondistended. Bowel sounds are present. NEUROLOGIC: The patient is awake, alert, and oriented. Moves all extremities equally. Follows commands with ease. EXTREMITIES: Pulses are palpable. No clubbing, cyanosis, or edema. SKIN: Warm and dry. DIAGNOSTIC STUDIES LABORATORY RESULTS: Creatinine 2.4, sodium 138, potassium 4.1. Liver function tests are within normal limits. INR was 1.1. Hemoglobin 13.1, hematocrit 40.0, WBC 6.8, and platelet count 227. Urinalysis shows trace leukocyte esterase, 0.2 urobilinogen, 4+ bacteria. Culture is currently pending. IMAGING STUDIES: CT of the abdomen and pelvis shows a large umbilical hernia measuring up to 20 cm in length, containing fat and fluid, not completely included on this study. A 6.3-cm left adrenal mass, possibly benign adrenal myelolipoma. Given its size and lack of comparison studies, recommend evaluation with adrenal protocol MRI or CT on a nonemergent basis. Nonobstructing calculi in the left kidney. CARDIOVASCULAR STUDIES: EKG shows atrial fibrillation, rate of 99 beats per minute, ST-T wave abnormalities, nonspecific. No acute ischemia. QTc interval of 438 milliseconds. Unit #: [id number] #: [id number] Patient: BRANDT CHAMPAGNE 1. Near syncopal episode, could be related to diuretics and medications. The patient was hypotensive on admission. 2. Hypotension, now resolved. Possibly secondary to dehydration. The patient's medications are currently on hold as the patient's blood pressure is still borderline low. 3. Atrial fibrillation, currently in atrial fibrillation with a controlled ventricular rate. The patient had been discharged on Xarelto, which is currently on hold. 4. Hypothyroidism. 5. Acute kidney injury. 6. Congestive heart failure, currently compensated. Last ejection fraction, 40% to 45% with mbxm-sx-hqlvvgyr MR. 7. Morbid obesity. PLAN The patient has been seen and evaluated. Her dizziness with near syncope is most likely due to dehydration secondary to diuretics. Her blood pressure medicines are currently on hold as the patient's blood pressure is still borderline low. She is currently being rehydrated. She also has an acute kidney injury most likely due to diuretics. In regard to the patient's rectal bleeding, Gastroenterology has been consulted and the recommendations are currently pending. At present, her Xarelto is on hold. The patient is currently not on an Bakari or ARB because of acute kidney injury. We will check portable chest x-ray today and await cardiac enzymes. Further recommendations to follow. Hopefully, the patient's blood pressure will normalize and her beta danielle will be able to be resumed at a later date. Dictated by... Juan Landa/modl TD: 05/04/2017 05:44 JOB #: [id number] CONSULTATION REPORT Page 1 of 1 X Cee Mora APRN CONSULTATION REPORT
--- NOTE | ~2017-05-03 | CO ---
Unit #: [id number] #: [id number] Patient: BRANDT CHAMPAGNE [id number] [facility]. [address] [place], [place] [address] [id number] I MR#: [id number] NAME: BRANDT CHAMPAGNE ROOM: 469 Age: 61 Sex: F Admission Date: 05/03/2017 : 1955 Attending Physician: Seble Wray M.D. Primary Care Physician: Primary Care Physician No Consultation Date: 05/04/2017 CONSULTATION REPORT REASON FOR CONSULTATION Renal failure. Thank you very much for asking me to see this patient in consultation. HISTORY OF PRESENT ILLNESS Ms. Brandt Champagne is a 61-year-old female, who presented to the hospital with dizziness, nausea, weakness, upon presentation noted to have a blood pressure in the ER in the 60 systolic and received fluid boluses. Blood pressure did improve. She was admitted for possible GI bleeding. The patient was in the hospital in 03/2017, where she had new onset atrial fib, was sent home on Xarelto as well. She did note to have an echo done in the past that showed an EF around 40% to 45% as well as some moderate mitral regurgitation. The patient was noted in 03/2017 to have creatinine of 0.6. Upon presentation, had a BUN of 140 and creatinine of 2.7. Because of this, I was asked to see the patient. She states she has never had any problems with her kidneys that she knows of. Never had any kidney stones. She denies any nonsteroidal use at home. PAST MEDICAL HISTORY History of atrial fibrillation again from 03/2017, history of hypertension, history of hypothyroidism, history of congestive heart failure with an EF 40% to 45%, history of moderate mitral regurgitation, history of obesity, history of hypokalemia in the past. MEDICATIONS Her home medicines include Xarelto, Lopressor, Lasix, levothyroxine, Aldactone, Zoloft, question on Zestril and/or potassium. She is currently now on Zofran and Protonix as well as IV fluids. ALLERGIES No known drug allergies. SOCIAL HISTORY She does not smoke or drink. 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 REVIEW OF SYSTEMS As mentioned in HPI. She denies any visual problems or sinus problems. No cough or hemoptysis. No neck pain or neck stiffness. No chest pain, chest heaviness, or palpitations. No shortness of breath. No significant abdominal pain. No urinary symptoms. No increased swelling. No recent seizures or strokes. FAMILY HISTORY Unit #: [id number] #: [id number] Patient: BRANDT CHAMPAGNE Noncontributory. PHYSICAL EXAMINATION GENERAL: She is alert and oriented. VITAL SIGNS: Temperature is 98.4, pulse 54 to 106, blood pressure now since ER fluid blouses 99 to 120 over 56 to 69, she had 3940 in and 1950 out. HEENT: She is normocephalic and atraumatic. Pupils are equal, round, and reactive to light. Extraocular muscles are intact. Hearing appears to be normal. Mouth is clear. No erythema. No exudate. NECK: Supple. No JVD. No adenopathy. CARDIAC: Irregular rhythm without a rub. No S3 or S4. LUNGS: Clear bilaterally. ABDOMEN: Overweight. Bowel sounds positive. Nontender. She has a large ventral hernia. EXTREMITIES: She has no lower extremity swelling. Her pulses are intact in the lower extremities. JOINTS: No joint pain or joint swelling. SKIN: No rashes. NEURO: Appears to be intact motor and sensory grossly. : Deferred. DIAGNOSTIC STUDIES IMAGING STUDIES: She had a CT scan of the abdomen and pelvis without IV contrast showed umbilical hernia. She has a 6.3 cm adrenal mass, questionable myelolipoma. She had nonobstructing small left renal stone. Renal ultrasound showed a right kidney was 9.5 cm, left kidney was 9.2 cm. No obstruction or masses were noted. Chest x-ray showed cardiomegaly, but no evidence of failure. LABORATORY RESULTS: Sodium is 133, potassium 3.4, chloride is 109, bicarb is 19, BUN is down to 84, creatinine is down to 1.4, glucose of 101, calcium is 8.3, phosphorus 3.2, magnesium is 2.1, albumin is 3.3. Hemoglobin is 11.7 now, white count 6900, platelets 196,000. UA shows specific gravity of 1.015, no rbc's, no wbc's, negative protein, although positive bacteria, and urine culture as well as urine eosinophils are pending. ASSESSMENT AND PLAN 1. Acute kidney injury. This lady has acute kidney failure probably combination of volume depletion from possible dehydration from her diuretics as well as possible gastrointestinal bleeding. She did state she had maybe of some dark and bloody stools over the last several days. Certainly, she was hypotensive and could have some acute tubular necrosis on top of that, but certainly agree with holding her diuretics, IV fluids. We will continue those for now, but will just a little bit and due to her cardiomegaly and her mild decreased ejection fraction, we will go ahead and lower down to 100 mL an hour and add a little potassium in her fluids. 2. History of hypokalemia, hypertension and adrenal mass. Apparently, it is a benign appearing mass on CT scan. However, certainly, she could have some sort of hyperaldosterone state. She was on Aldactone at home as well, which would be the treatment of choice. However, I am going to go ahead and do a serum aldosterone level as well as a serum renin level given oral potassium today plus add little bit to her IV fluids. 3. Possible gastrointestinal bleed. Workup underway. 4. Atrial fibrillation/flutter, history of mild congestive heart failure/moderate mitral regurgitation. 5. Hypertension. I agree with holding her antihypertensives now until Unit #: [id number] #: [id number] Patient: BRANDT CHAMPAGNE blood pressure worsens. Dictated by.Kameron White M.D. FLOR/letty TD: 05/04/2017 23:24 JOB #: [id number] CONSULTATION REPORT Page 1 of 1 X Kayla White MD X CONSULTATION REPORT
--- NOTE | ~2017-05-03 | OR ---
Unit #: [id number] #: [id number] Patient: BRANDT CHAMPAGNE [id number] [place], [place] [address] [id number] I MR#: [id number] NAME: BRANDT CHAMPAGNE. ROOM: 469 Date of Procedure: 05/05/2017 Admission Date: 05/03/2017 Surgeon: Kimani Alva M.D. : 1955 Attending Physician: Seble Wray M.D. Primary Care Physician: Primary Care Physician No OPERATIVE REPORT PROCEDURE PERFORMED Sigmoidoscopy with biopsy. INDICATIONS FOR PROCEDURE The patient presented with blood in the stool, was brought in for colonoscopy. MEDICATIONS Monitored anesthesia. POSTOPERATIVE FINDINGS 1. Presence of hard stool could not go past sigmoid colon. 2. Multiple ulcers in the rectum most likely ischemic. Biopsies taken. 3. Internal hemorrhoids. PLAN Repeat colonoscopy needed with extended prep can be done over next few days. DESCRIPTION OF PROCEDURE The patient was explained of the procedure, risks, and benefits along with the risks and benefits of anesthesia. She was brought to the endoscopy room. Propofol anesthesia was given. The scope was lubricated, passed to the rectum, advanced up to descending, but I could not go further because of presence of hard stool. Limited examination showed findings as described above. Biopsy was taken. Gently I pulled it out. She tolerated it well. Dictated by... Abdon Flynn/letty TD: 05/06/2017 07:08 JOB #: [id number] Unit #: [id number] #: [id number] Patient: BRANDT CHAMPAGNE OPERATIVE REPORT Page 1 of 1 X Kimani Alva MD X PROCEDURE OPERATIVE NOTE
--- NOTE | ~2017-05-03 | HP ---
Unit #: [id number] #: [id number] Patient: BRNADT CHAMPAGNE [id number] [facility] [address] [place], [place] [address] [id number] I MR#: [id number] NAME: BRANDT CHAMPAGNE ROOM: 469 Age: 61 Sex: F Admission Date: 05/03/2017 : 1955 Attending Physician: Seble Wray M.D. Primary Care Physician: No Primary Care Physician HISTORY AND PHYSICAL DIAGNOSES ON ADMISSION 1. Lower gastrointestinal bleeding. 2. Acute kidney injury. HOSPITAL COURSE A 61-year-old female who was recently admitted in hospital in March from March 30 to April 03, 2017 and was diagnosed with atrial fibrillation and started on Xarelto. Presented to the hospital with lightheadedness. As per patient, she was in her usual state of health but had nausea for last three to four weeks. Patient stated that it all happened when she left hospital and attributes to her blood thinner medicine. 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 She said she was also very weak. Therefore, she came to the ER. Patient also stated that she passed a small amount of rectal blood. Patient was seen in the ER and it was decided to admit her for further workup. Currently, patient is complaining of nausea but denies any vomiting or abdominal pain. She is complaining of generalized weakness. She denies sore throat, sinus congestion, skin rash, fevers, chills, or cough. There is no history of blood in urine; however, patient is complaining of rectal bleeding. The patient denies any chest pain or palpitations. The rest of the review of systems is negative. PAST MEDICAL HISTORY 1. The patient was admitted at [facility] from March 30 to April 03, 2017 and was diagnosed with atrial fibrillation and started on Xarelto. 2. Hypothyroidism. 3. Hypertension. 4. Morbid obesity. 5. Hypokalemia. PAST SURGICAL HISTORY None. SOCIAL HISTORY The patient denies smoking, drinking, or use of illicit drugs. 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 FAMILY HISTORY Denies any history of significant illness in family. ALLERGIES No known drug allergies. Unit #: [id number] #: [id number] Patient: BRANDT CHAMPAGNE HOME MEDICATIONS 1. Xarelto. 2. Tylenol. 3. Lopressor. 4. Lasix. 5. Lisinopril. 6. Aldactone. 7. Potassium. 8. Synthroid. PHYSICAL EXAMINATION GENERAL: Patient is lying comfortably in bed, is not in any obvious acute distress. VITAL SIGNS: Reveal temperature of 97.9, pulse is 56 per minute, respiratory rate is 16 per minute, blood pressure 109/60. HEENT: Revealed no conjunctival congestion. Sclerae is nonicteric. NECK: Supple. Trachea central. RESPIRATORY: Revealed breath sounds equal bilaterally. No wheezes or crackles. HEART: Irregularly irregular. S1, S2. ABDOMEN: Soft, nontender. Bowel sounds are present in all four quadrants. NEUROLOGIC: The patient's strength is 4+ bilaterally. SKIN: Warm and dry. DIAGNOSTIC STUDIES LABORATORY: Labs on admission: Patient's creatinine was 2.4. Sodium is 138, potassium 4.1. AST and ALT were within normal limits. INR is 1.1. WBC 6.8, hemoglobin 13.1, platelet count 227,000. Urinalysis reveals 0-2 WBCs. IMAGING: CT abdomen and pelvis revealed umbilical hernia and abdominal mass as per preliminary report. ASSESSMENT AND PLAN A 61-year-old female presented to the hospital with weakness. 1. Acute kidney injury: It is likely secondary to diuretics. Patient is on IV fluids and should respond well. 2. Hypertension, secondary to dehydration: The patient's medications are on hold. 3. Atrial fibrillation: Patient is currently in atrial fibrillation. Will request cardiology to see patient in consult. The Xarelto is on hold. 4. Hypothyroidism: Will resume patient's Synthroid once she starts taking oral intake. 5. We will also request Dr. Alva's clinic to see patient in consultation for rectal bleeding and possible scope. 6. I will consult Dr. Null regarding atrial fibrillation. 7. Patient is full code. 8. I will also do an EKG and STAT cardiac enzymes as it was not done in the emergency room. Dictated by Unit #: [id number] #: [id number] Patient: BRANDT CHAMPAGNE Abdon Mahan TD: 05/03/2017 10:01 JOB #: [id number] HISTORY AND PHYSICAL Page 1 of 1 X Seble Wray MD HISTORY AND PHYSICAL
--- NOTE | ~2017-05-03 | DS ---
Unit #: [id number] #: [id number] Patient: BRANDT CHAMPAGNE [id number] [id number] [place], [place] [address] [id number] MR#: [id number] NAME: BRANDT CHAMPAGNE ROOM: 469 Age: 61 Sex: F Admission Date: 05/03/2017 : 1955 Discharge Date: 05/06/2017 Attending Physician: Seble Wray M.D. Primary Care Physician: No Primary Care Physician DISCHARGE SUMMARY DIAGNOSIS ON ADMISSION 1. Acute kidney injury. 2. Gastrointestinal bleeding. DIAGNOSES ON DISCHARGE 1. Acute kidney injury, resolved. 2. Gastrointestinal bleeding. 3. Large ventral abdominal hernia. 4. Permanent atrial fibrillation. 5. Morbid obesity. 6. Chronic systolic heart failure, ejection fraction of 40% to 45%. 7. Hypothyroidism. 8. Hypotension, resolved. 9. Left adrenal mass. CONSULTATIONS 1. Dr. Null and in cardiac consultation. 2. Dr. White in renal consultation. 3. Dr. Everett in surgical consultation. 4. Dr. Alva in GI consultation. DIAGNOSTIC STUDIES LABS: The patient's creatinine is 0.9, sodium 143, potassium 3.7. WBC is 4.8, hemoglobin 11.4, platelet count 186. Urinalysis revealed 0.2 WBCs. Urine culture revealed E-coli, greater than 100,000. Eosinophil smear did not reveal any eosinophils. IMAGING: Bilateral renal ultrasound was normal. CT scan of the abdomen and pelvis revealed large umbilical hernia measuring up to 20 cm in length. There was 6.3 cm left adrenal mass, probably a benign adrenal myelolipoma. Given its size and lack of comparison studies, evaluation was recommended with adrenal protocol MRI or CT scan on a nonemergent basis. Nonobstructing calculi in the left kidney. HOSPITAL COURSE This 61-year-old patient was admitted to [facility] with rectal bleeding. Details are as per admission H and P. The patient was seen by Dr. Alva in consultation who performed a flexible sigmoidoscopy. The patient had multiple ulcers in the rectum. Could not complete it because of the presence of a lot of stool. The patient's hemoglobin is stable. Unit #: [id number] #: [id number] Patient: BRANDT CHAMPAGNE Large ventral hernia. The patient was seen by surgery in consultation who recommended to follow up on an outpatient basis for surgical repair. Persistent atrial fibrillation. The patient's Xarelto was held. We will resume the patient's Xarelto if okay with Dr. Alva. The patient is advised to follow up with cardiology as outpatient. PHYSICAL EXAMINATION GENERAL: Today, the patient is comfortable, feeling good and wants to go home. The patient is morbidly obese. VITAL SIGNS: Vital signs reveal temperature of 98 degrees, pulse 74 per minute, respiratory rate 14 per minute and blood pressure 132/78. HEENT: Examination revealed no conjunctival congestion. Sclera is nonicteric. NECK: Neck is supple. Trachea is central. RESPIRATORY: Examination revealed decreased breath sounds bilaterally. There are no wheezes or crackles. HEART: Regular rate and rhythm. S1, S2. ABDOMEN: Abdomen is soft, nontender. Bowel sounds are present. There is a large umbilical hernia present, which is reducible. NEUROLOGIC: Strength is 5/5 bilaterally. SKIN: Skin is warm and dry. RECOMMENDATIONS ON DISCHARGE 1. Condition is stable. 2. Activity is as tolerated. DISCHARGE MEDICATIONS 1. Zofran 4 mg p.o. t.i.d. p.r.n. 2. Xarelto 20 mg p.o. daily if okay with Dr. Alva. 3. MiraLAX 17 grams p.o. b.i.d. 4. Lasix 20 mg p.o. q.a.m. 5. Synthroid 50 mcg p.o. daily. 6. Omnicef 300 mg p.o. b.i.d. for 5 days. FOLLOW-UP/RECOMMENDATIONS 1. The patient is advised to follow up with primary care physician in 1 week and have CBC and BMP done. 2. Follow up with Dr. Alva as recommended for outpatient colonoscopy. 3. The patient is advised to follow with surgery in 2 weeks. 4. Follow up with cardiology as scheduled. 5. The patient is advised to call primary care physician or go to ER if her condition changes. Dictated by... Abdon Mahan TD: 05/06/2017 11:02 JOB #: [id number] Unit #: [id number] #: [id number] Patient: BRANDT CHAMPAGNE DISCHARGE SUMMARY Page 1 of 1 X Seble Wray MD X DISCHARGE SUMMARY
--- NOTE | ~2017-05-03 | A ---
[facility] Nutrition Therapy DATE: 05/03/17 Patient: BRANDT CHAMPAGNE Physician: EDELMIRA Address: [address] Room/Bed: [address] [place] [address], Zip: [place] [address] Admit Date: 05/03/17 Date of : [birth year] Height: 5 8 Weight: 270 122.46 NUTRITIONAL ASSESSMENT: REASON: 5 points nutrition screen RE: 70# weight loss, and for consult RE: Nausea, weight loss, poor appetite 61 yo female admitted for possible GI bleed, ENDY PMH: Afib, HTN, hypothyroid, morbid obesity, CHF Anthropometrics: Ht: 5'8" Wt: 122.46 kg BMI: 41.0 Labs: BUN 113 Creat 2.4 GFR 20.8 Meds: zofran, NaCl, protonix I/O & Bowel function: 0/151, last BM 05/03 Skin Integrity: no breakdown noted, no edema Diet: Clear liquids Assessment: Chart reviewed, events noted. 61 yo female admitted for possible GI bleed and nausea/ vomiting/ diarrhea x 3-4 weeks. Pt was recently advanced to a clear liquid diet. CT abdomen showed a larged hernia and pt to have a scope ?tomorrow. RD spoke with the pt at bedside. Pt reports having ~70# weight loss in the past couple of months. Pt attributes weight loss to "fluid loss" and n/v/d with poor appetite. RD explained clear liquid diet to the pt, and recommended Ensure Clear for now. Pt is agreeable, and stated "I needed to lose weight anyways, but I know that wasn't the healthy way". Pt denied having any questions regarding her diet. RD will continue to follow the pt and make appropriate recommendations. Dx: Unintentional weight loss RT poor appetite, n/v/d AEB pt reported GI issues, poor appetite, and 70# weight loss. Intervention: 1. Clear liquid diet 2. Advance diet as tolerated once appropriate Monitoring, Evaluation and Goals: 1. Oral intake; tolerate >50% of meals and supplements 2. Improve labs; BUN, creat, GFR 3. Weight; promote gradual, healthy weight loss towards IBW 4. GI; promote regular GI function [facility] Nutrition Therapy DATE: 05/03/17 Patient: BRANDT CHAMPAGNE Physician: EDELMIRA Address: [address] Room/Bed: [address] [place] [address], Zip: [place] [address] Admit Date: 05/03/17 Date of : [birth year] Height: 5 8 Weight: 270 122.46 Recommendations: 1. Ensure clear BID for supplemental nutrition while the pt remains on clear liquid diet. 2. Once medically feasible, advance the pt to a heart healthy diet as tolerated. RD will follow up to make additional recommendations as appropriate. 3. If unable to advance to PO diet, consult RD as appropriate. Pt is at mild-moderate nutritional risk. Respectfully, ELINA PHELPS RD, LD [employer] [facility] cc: client file
--- NOTE | ~2017-05-03 | US77 ---
[facility] A Service of [facility] RADIOLOGY TEXT RESULTS PATIENT: BRANDT CHAMPAGNE LOCATION: [facility] 469-01 : [birth year] UNIT #: [id number] AGE: [address]: Seble Wray MD SEX: F ORDER DR: [id number] [facility] [address] [place], [place] [address] [id number] I MR#: [id number] #: [id number] NAME: BRANDT CHAMPAGNE. : 1955 SEX: F STUDY DATE/TIME: 05/03/2017 12:53 UNIT: [facility] ROOM: Critical access hospital STUDY DESCRIPTION: US Kidney Bilateral Complete Attending Physician: Seble Wray M.D. Ordering Physician: Dianelys Wilder M.D. Primary Care Physician: No Primary Care Physician MEDICAL IMAGING REPORT This report is preliminary unless electronic signature is present EXAM Bilateral renal sonogram. CLINICAL HISTORY 61-year-old female with acute kidney injury, nausea for 2 days. The creatinine was 2.4, BUN 113. FINDINGS Real-time examination demonstrates the kidneys to be of normal size, shape and echogenicity. The right kidney measures 9.5 cm in length, the left kidney 9.2 cm in length. The central echo complex appears normal. Cortical thickness normal. No mass lesions or hydronephrosis. Perinephric soft tissues unremarkable. The visualized bladder is normal. IMPRESSION Normal bilateral renal sonogram. Dictated by... Penny Corbett M.D. THIS IS AN ELECTRONICALLY VERIFIED REPORT Penny Corbett M.D. at 05/04/2017 7:29 AM EVERARDO/lynn TD: 05/04/2017 00:03 JOB #: [id number] MEDICAL IMAGING REPORT Page 1 of 1 COPY
[~2017-05-03 00:08] MED LIST changes: +ACETAMINOPHEN PO; +ALDACTONE25 MG PO; +KCL PO; +LASIX PO; +LEVOTHYROXINE50 MC1 PO; +LISINOPRIL10 MG PO; +LOPRESSOR PO; +SYNTHROID PO; +XARELTO20 MG PO
[2017-05-03 00:38] LABS: BASOPHIL# 0.1 X10e3 (0-0.3); BASOPHIL% 1.3 % (0-2.5); EOSINOPHIL# 0.1 X10e3 (0-0.7); EOSINOPHIL% 1.6 % (0.0-7.0); HEMATOCRIT 42.2 % (35.0-45.0); HEMOGLOBIN 13.8 gm/dL (12.0-16.0); LYMPHOCYTE# 0.7 X10e3 (1.0-3.5); LYMPHOCYTE% 9.7 % (17.0-45.0); MEAN CELL VOLUME 87.7 FL (83-96); MEAN CORPUSCULAR HEMOGLOBIN 28.8 PG (28-34); MEAN CORPUSCULAR HGB CONC 32.8 g/dL (30-36); MEAN PLATELET VOLUME 8.2 FL (6.5-11.5); MONOCYTE# 0.6 X10e3 (0-1.0); MONOCYTE% 7.4 % (3.0-12.0); NEUTROPHIL# 6.1 X10e3 (1.5-7.1); PLATELET COUNT 286 X10e3 (140-420); RED BLOOD COUNT 4.81 X10e (3.90-5.30); RED CELL DISTRIBUTION WIDTH 15.2 % (11.0-15.5); WHITE BLOOD COUNT 7.6 X10e3 (4.0-10.5)
[2017-05-03] MEDS ORDERED: ZOFRAN ODT4 MG PO (00:38)
[2017-05-03] MEDS ORDERED: ALDACTONE25 MG PO (00:38)
[2017-05-03 00:41] LABS: DIFF IND NO
[2017-05-03 01:00] LABS: INR 1.1; PARTIAL THROMBOPLASTIN TIME 26.6 SECONDS (25.6-38.1); PROTHROMBIN TIME (PATIENT) 12.7 SECONDS (9.5-12.4)
[2017-05-03 01:04] LABS: ALBUMIN SERUM 4.4 g/dL (3.5-5.0); BILIRUBIN, DIRECT 0.1 mg/dL (0.0-0.2); BILIRUBIN,INDIRECT 0.7 mg/dL (0.0-0.9); BILIRUBIN,TOTAL 0.8 mg/dL (0.2-2.0); CALCIUM SERUM 8.8 mg/dL (8.4-10.2); CREATININE SERUM 2.7 mg/dL (0.6-1.4); POTASSIUM 4.2 mmol/L (3.5-5.1); PROTEIN TOTAL SERUM 7.9 g/dL (6.0-8.3)
[2017-05-03 01:18] LABS: BUN/CREATININE RATIO 51.85
[2017-05-03 07:11] LABS: URINE APPEARANCE CLEAR; URINE BILIRUBIN NEG (NEG); URINE BLOOD TRACE (NEG); URINE COLOR YELLOW; URINE GLUCOSE NEG (NEG); URINE KETONE NEG (NEG); URINE LEUKOCYTE ESTERASE TRACE (NEG); URINE NITRATE NEG (NEG); URINE PROTEIN NEG (NEG); URINE SPECIFIC GRAVITY 1.015 (1.003-1.035); URINE UROBILINOGEN 0.2 MG/DL (NEG)
[2017-05-03 07:14] LABS: CULTURE INDICATED? YES; URBCS1 AUWI 0-2 /[HPF] (0-2); URINE BACTERIA AUWI 4+ (NEGATIVE); URINE SQUAMOUS EPITHELIAL CELL OCC /[HPF]; UWBCS1 AUWI 0-2 (0-5)
[2017-05-03 07:58] LABS: HEMOGLOBIN 13.1 gm/dL (12.0-16.0); MEAN CELL VOLUME 87.7 FL (83-96); MEAN CORPUSCULAR HEMOGLOBIN 28.7 PG (28-34); MEAN CORPUSCULAR HGB CONC 32.8 g/dL (30-36); MEAN PLATELET VOLUME 8.2 FL (6.5-11.5); RED BLOOD COUNT 4.55 X10e (3.90-5.30); RED CELL DISTRIBUTION WIDTH 15.4 % (11.0-15.5); WHITE BLOOD COUNT 6.8 X10e3 (4.0-10.5)
[2017-05-03 08:32] LABS: CALCIUM SERUM 8.9 mg/dL (8.4-10.2); CREATININE SERUM 2.4 mg/dL (0.6-1.4); GLOM FILT RATE Estimated 20.8 mL/min (>60); POTASSIUM 4.1 mmol/L (3.5-5.1)
[2017-05-03 08:33] LABS: BUN/CREATININE RATIO 47.08
[2017-05-03 10:22] LABS: CK TOTAL 14 IU/L (26-140)
[2017-05-03 14:59] LABS: HEMATOCRIT 38.5 % (35.0-45.0); HEMOGLOBIN 12.3 gm/dL (12.0-16.0)
[2017-05-03 21:11] LABS: HEMATOCRIT 36.5 % (35.0-45.0); HEMOGLOBIN 11.8 gm/dL (12.0-16.0)
[2017-05-04 03:35] LABS: HEMATOCRIT 36.2 % (35.0-45.0); HEMOGLOBIN 11.7 gm/dL (12.0-16.0); MEAN CELL VOLUME 87.7 FL (83-96); MEAN CORPUSCULAR HEMOGLOBIN 28.2 PG (28-34); MEAN CORPUSCULAR HGB CONC 32.2 g/dL (30-36); RED BLOOD COUNT 4.13 X10e (3.90-5.30); RED CELL DISTRIBUTION WIDTH 15.1 % (11.0-15.5); WHITE BLOOD COUNT 6.9 X10e3 (4.0-10.5)
[2017-05-04 04:01] LABS: ALBUMIN SERUM 3.3 g/dL (3.5-5.0); BILIRUBIN,TOTAL 1.2 mg/dL (0.2-2.0); BUN/CREATININE RATIO 58.57; CALCIUM SERUM 8.2 mg/dL (8.4-10.2); CREATININE SERUM 1.4 mg/dL (0.6-1.4); GLOM FILT RATE Estimated 39.9 mL/min (>60); MAGNESIUM 2.1 mg/dL (1.6-3.0); PHOSPHOROUS 3.2 mg/dL (2.5-4.6); POTASSIUM 3.4 mmol/L (3.5-5.1); PROTEIN TOTAL SERUM 6.3 g/dL (6.0-8.3)
[2017-05-04 10:28] LABS: HEMOGLOBIN 11.9 gm/dL (12.0-16.0)
[2017-05-05 03:32] LABS: HEMATOCRIT 36.8 % (35.0-45.0); HEMOGLOBIN 11.7 gm/dL (12.0-16.0); MEAN CELL VOLUME 89.2 FL (83-96); MEAN CORPUSCULAR HEMOGLOBIN 28.4 PG (28-34); MEAN CORPUSCULAR HGB CONC 31.8 g/dL (30-36); MEAN PLATELET VOLUME 8.1 FL (6.5-11.5); RED BLOOD COUNT 4.12 X10e (3.90-5.30); RED CELL DISTRIBUTION WIDTH 15.9 % (11.0-15.5)
[2017-05-05 05:09] LABS: ALBUMIN SERUM 3.1 g/dL (3.5-5.0); BILIRUBIN,TOTAL 0.3 mg/dL (0.2-2.0); BUN/CREATININE RATIO 48.88; CALCIUM SERUM 8.3 mg/dL (8.4-10.2); CREATININE SERUM 0.9 mg/dL (0.6-1.4); GLOM FILT RATE Estimated 68.1 mL/min (>60); MAGNESIUM 1.9 mg/dL (1.6-3.0); PHOSPHOROUS 2.3 mg/dL (2.5-4.6); POTASSIUM 4.1 mmol/L (3.5-5.1); PROTEIN TOTAL SERUM 5.9 g/dL (6.0-8.3)
[2017-05-05 10:47] LABS: THYROID STIMULATING HORMONE 13.67 uIU/ml (0.34-5.60)
[2017-05-05 10:51] LABS: FREE T3 2.7 pg/mL (2.5-3.9)
[2017-05-05 10:53] LABS: FREE THYROXIN (T4) 0.66 ng/dL (0.58-1.64)
[2017-05-06 04:06] LABS: HEMATOCRIT 35.5 % (35.0-45.0); HEMOGLOBIN 11.4 gm/dL (12.0-16.0); MEAN CELL VOLUME 88.6 FL (83-96); MEAN CORPUSCULAR HEMOGLOBIN 28.6 PG (28-34); MEAN CORPUSCULAR HGB CONC 32.2 g/dL (30-36); MEAN PLATELET VOLUME 7.8 FL (6.5-11.5); RED CELL DISTRIBUTION WIDTH 15.6 % (11.0-15.5); WHITE BLOOD COUNT 4.8 X10e3 (4.0-10.5)
[2017-05-06 04:35] LABS: BUN/CREATININE RATIO 23.33; CALCIUM SERUM 8.3 mg/dL (8.4-10.2); CREATININE SERUM 0.9 mg/dL (0.6-1.4); GLOM FILT RATE Estimated 68.1 mL/min (>60); MAGNESIUM 1.9 mg/dL (1.6-3.0); PHOSPHOROUS 2.5 mg/dL (2.5-4.6); POTASSIUM 3.7 mmol/L (3.5-5.1)
[2017-05-06] MEDS ORDERED: MIRALAX17 GM PO (14:11)
[2017-05-06] MEDS ORDERED: OMNICEF300 MG PO (14:13)
[2017-05-08 15:11] LABS: ALDOSTERONE SERUM 1 ng/dL (***)
[2017-06-23] MEDS ORDERED: MULTI VITAMIN1 EACH PO (13:42)
[2017-06-23] MEDS ORDERED: ACETAMINOPHEN PO (13:43)
[2017-06-23] MEDS ORDERED: XARELTO10 MG PO (13:44)
== END 2017-05-06 16:45 | disposition home or self-care (01) | DRG 378 ==
LOC: SED 00:08 → CEDOF 03:39 → SEDOF 04:05 → CEDOF 04:05 → C4C 05:45 → SEDOF 05:45 → C4C 05:45 → SEDOF 06:00 → C4C 06:00 → CEDOF 06:00 → C4C 07:05
PROVIDERS: Emergency Medicine; Internal Medicine; Internal Medicine Nephrology; Surgery
PROC: 0DBE8ZX Excision of Large Intestine, Via Natural or Artificial Opening Endoscopic, Diagnostic (ICD-10-PCS; principal; 2017-05-05 16:45)
DX: K92.1 Melena (principal); N17.9 Acute kidney failure, unspecified; I95.9 Hypotension, unspecified; I11.0 Hypertensive heart disease with heart failure; K42.0 Umbilical hernia with obstruction, without gangrene; E27.8 Other specified disorders of adrenal gland; I50.22 Chronic systolic (congestive) heart failure; Z68.41 Body mass index [BMI] 40.0-44.9, adult; K62.6 Ulcer of anus and rectum; I48.2 Chronic atrial fibrillation; Z79.01 Long term (current) use of anticoagulants; E66.01 Morbid (severe) obesity due to excess calories; E03.9 Hypothyroidism, unspecified; E86.0 Dehydration; E87.6 Hypokalemia; Z82.49 Family history of ischemic heart disease and other diseases of the circulatory system
CPT/HCPCS: 36415; 71010; 74176; 76770; 80048; 80053; 80076; 81003; 82088; 82550; 83690; 83735; 84100; 84244; 84300; 84439; 84443; 84481; 84484; 85014; 85018; 85025; 85027; 85610; 85730; 86850; 86900; 86901; 87086; 87088; 87186; 88305; 89190; 93005; 96360; 99285; C9113; J0696; J2405